=== PATIENT | female | born 1980 | race Caucasian/White ===

== ENCOUNTER 2016-05-27 09:09 | Emergency (ER) | payer MEDICAID, OTHER, SELFPAY ==
[~2016-05-27] VITALS: Ht 152.4 cm; Wt 73.3 kg
[~2016-05-27 09:09] MED LIST: LEVO500T8 PO
[2016-05-27] MEDS ORDERED: MAALOX/HYOSCYAMINE/LIDOCAINE 45 ML BOTTLE ONE (11:52)
[2016-05-27] MEDS ORDERED: FAMOTIDINE 20 MG/2 ML ONE (11:53)
[2016-05-27] MEDS ORDERED: ONDANSETRON 2MG/ML, 2ML ONE (11:53)
[2016-05-27] MEDS ORDERED: SODIUM CHLORIDE 0.9% 1,000ML IVBOLUS ONE (12:00)
[2016-05-27] MEDS ORDERED: MAALOX/HYOSCYAMINE/LIDOCAINE 45 ML BOTTLE PO ONE (12:00)
[2016-05-27] MEDS ORDERED: SODIUM CHLORIDE FLUSH 10ML SYR IVF ONE (12:00)
[2016-05-27] MEDS ORDERED: FAMOTIDINE 20 MG/2 ML IVP ONE (12:00)
[2016-05-27] MEDS ORDERED: MORPHINE SULFATE 4 MG/ML, 1ML IVPush PRN (12:00)
[2016-05-27] MEDS ORDERED: ONDANSETRON 2MG/ML, 2ML IVPush ONE (12:00)
[2016-05-27 12:03] LABS: HEMOGLOBIN 13.5 g/dL (11.7-16.4)
[2016-05-27 12:12] LABS: PATH.CAST-FLAG NOT PRESENT; SPERM-FLAG NOT PRESENT; SRC-FLAG NOT PRESENT; XTAL-FLAG NOT PRESENT; YLC-FLAG NOT PRESENT
[2016-05-27 12:16] LABS: ASPARTATE AMINO TRANSFERASE 45 U/L (15-37); BLOOD UREA NITROGEN 7 mg/dL (7-18)
[2016-05-27 13:11] VITALS: BP 120/69
== END 2016-05-27 13:52 | disposition home or self-care (01) ==
LOC: ED 12:10
DX: K29.00 Acute gastritis without bleeding (principal); R10.13 Epigastric pain; Z87.440 Personal history of urinary (tract) infections; Z98.51 Tubal ligation status; Z98.890 Other specified postprocedural states
CPT/HCPCS: 36415; 76700; 80053; 81001; 83690; 84703; 85025; 85610; 85730; 96361; 96374; 96375; 99285; J2405; J7030; S0028

== ENCOUNTER 2016-12-30 16:40 | Emergency (ER) | payer MEDICAID ==
[~2016-12-30] VITALS: Ht 152.4 cm; Wt 68.4 kg
[2016-12-30 16:42] VITALS: BP 104/66
[2016-12-30] MEDS ORDERED: SODIUM CHLORIDE 0.9% 1,000ML IVBOLUS ONE (17:00)
[2016-12-30] MEDS ORDERED: ONDANSETRON 2MG/ML, 2ML IVPush ONE (17:00)
[2016-12-30] MEDS ORDERED: SODIUM CHLORIDE FLUSH 10ML SYR IVF ONE (17:00)
[2016-12-30] MEDS ORDERED: FAMOTIDINE 20 MG/2 ML IVP ONE (17:00)
[2016-12-30] MEDS ORDERED: MAALOX/HYOSCYAMINE/LIDOCAINE 45 ML BTL PO ONE (17:00)
[2016-12-30 17:20] LABS: HEMATOCRIT 41.7 % (34.6-47.8); HEMOGLOBIN 14.2 g/dL (11.7-16.4); WHITE BLOOD COUNT 11.8 x10^3/uL (3.4-10)
[2016-12-30 18:00] LABS: ASPARTATE AMINO TRANSFERASE 121 U/L (15-37); BLOOD UREA NITROGEN 9 mg/dL (7-18)
[2016-12-30] MEDS ORDERED: MAALOX/HYOSCYAMINE/LIDOCAINE 45 ML BTL ONE (18:25)
[2016-12-30] MEDS ORDERED: FAMOTIDINE 20 MG/2 ML ONE (18:25)
[2016-12-30] MEDS ORDERED: ONDANSETRON 2MG/ML, 2ML ONE (18:25)
== END 2016-12-30 20:26 | disposition home or self-care (01) ==
LOC: ED 18:44
DX: K29.00 Acute gastritis without bleeding (principal)
CPT/HCPCS: 36415; 71020; 76700; 80053; 81003; 83690; 84703; 85025; 96361; 96374; 96375; 99285; J2405; J7030; S0028

== ENCOUNTER 2017-04-13 09:17 | Emergency (ER) | payer MEDICAID ==
[~2017-04-13] VITALS: Ht 152.4 cm; Wt 67.6 kg
[2017-04-13] MEDS ORDERED: ASPIRIN 81 MG TABLET CHEW PO ONE (10:30)
[2017-04-13] MEDS ORDERED: SODIUM CHLORIDE FLUSH 10ML SYR IVF ONE (10:30)
[2017-04-13] MEDS ORDERED: ASPIRIN 81 MG TABLET CHEW ONE (10:40)
[2017-04-13 10:45] LABS: BASOPHILS # (AUTO) 0.12 x10^3/uL (0-0.1); BASOPHILS % (AUTO) 1 % (0-1); EOSINOPHILS # (AUTO) 0.04 x10^3/uL (0-0.4); EOSINOPHILS % (AUTO) 0 % (1-7); LYMPHOCYTES # (AUTO) 2.47 x10^3/uL (1-3.4); LYMPHOCYTES % (AUTO) 22 % (22-44); MD NO; MEAN CORPUSCULAR HEMOGLOBIN 29.3 pg (27.0-34.8); MEAN CORPUSCULAR HGB CONC 33.8 g/dL (32.4-35.8); MEAN CORPUSCULAR VOLUME 86.7 fL (80-100); MEAN PLATELET VOLUME 9.6 fL (7.4-10.4); MONOCYTES # (AUTO) 0.75 x10^3/uL (0.2-0.8); MONOCYTES % (AUTO) 7 % (2-9); NEUTROPHILS % (AUTO) 70 % (42-75); PLATELET COUNT 170 x10^3/uL (130-400); RED BLOOD COUNT 4.87 x10^6/uL (3.82-5.3); RED CELL DISTRIBUTION WIDTH 14.2 % (9.6-15.2)
[2017-04-13 10:57] LABS: ALBUMIN 3.7 g/dL (3.4-5.0); ANION GAP 8 mmol/L (5-15); CALCIUM 8.5 mg/dL (8.5-10.1); CHLORIDE 106 mmol/L (98-107); CREATININE 0.64 mg/dL (0.55-1.02)
[2017-04-13 11:01] LABS: TROPONIN I < 0.015 ng/mL (0.000-0.045)
[2017-04-13] MEDS ORDERED: KETOROLAC 30 MG/1 ML ONE ×2 (11:43)
[2017-04-13] MEDS ORDERED: KETOROLAC 30 MG/1 ML IM ONE (12:00)
[2017-04-13] MEDS ORDERED: KETOROLAC 30 MG/1 ML IVPush ONE (12:00)
[2017-04-13 12:27] VITALS: BP 113/66
== END 2017-04-13 12:29 | disposition home or self-care (01) ==
LOC: ED 12:19
DX: M94.0 Chondrocostal junction syndrome [Tietze] (principal); I82.412 Acute embolism and thrombosis of left femoral vein
CPT/HCPCS: 36415; 71046; 80048; 82040; 83880; 84484; 85025; 85379; 93005; 93971; 96372; 99285; J1885

== ENCOUNTER 2019-12-01 10:20 | Emergency (ER) | payer OTHER ==
[~2019-12-01] VITALS: Ht 152.4 cm; Wt 64.0 kg
--- NOTE | 2019-12-01 10:48 | NUR ---
PT STATES SHE HAS HAD EPIGASTRIC PAIN SINCE ABOUT 1700 LAST NIGHT AFTER EATING A SALAD. PT ALSO STATES SHE HAS HAD A HEADACHE SINCE ABOUT 1800 LAST NIGHT. PT STATES HER PAIN IS 8/10.
[2019-12-01] MEDS ORDERED: FAMOTIDINE 20 MG TABLET PO ONE (11:00)
[2019-12-01] MEDS ORDERED: SODIUM CHLORIDE FLUSH 10ML SYR IVF ONE (11:00)
[2019-12-01] MEDS ORDERED: SODIUM CHLORIDE 0.9% 1,000ML IVBOLUS ONE (11:00)
[2019-12-01] MEDS ORDERED: MAALOX/HYOSCYAMINE/LIDOCAINE 45 ML BTL PO ONE (11:00)
[2019-12-01] MEDS ORDERED: KETOROLAC 30 MG/1 ML IVPush ONE (11:00)
[2019-12-01] MEDS ORDERED: FAMOTIDINE 20 MG/2 ML ONE (11:03)
[2019-12-01] MEDS ORDERED: MAALOX/HYOSCYAMINE/LIDOCAINE 45 ML BTL ONE (11:03)
[2019-12-01] MEDS ORDERED: KETOROLAC 30 MG/1 ML ONE (11:03)
[2019-12-01 11:29] LABS: BASOPHILS % (AUTO) 1 % (0-1); EOSINOPHILS % (AUTO) 1 % (1-7); LYMPHOCYTES % (AUTO) 26 % (22-44); MEAN CORPUSCULAR HEMOGLOBIN 29.9 pg (27.0-34.8); MEAN CORPUSCULAR HGB CONC 33.9 g/dL (32.4-35.8); MEAN PLATELET VOLUME 10.4 fL (7.4-10.4); MONOCYTES % (AUTO) 8 % (2-9); NEUTROPHILS % (AUTO) 65 % (42-75); PLATELET COUNT 220 x10^3/uL (130-400); RED BLOOD COUNT 5.09 x10^6/uL (3.82-5.3); RED CELL DISTRIBUTION WIDTH 13.2 % (9.6-15.2)
[2019-12-01 11:30] LABS: MD NO
[2019-12-01] MEDS ORDERED: FAMOTIDINE 20 MG/2 ML IVPush ONE (11:30)
[2019-12-01 11:39] LABS: ALANINE AMINOTRANSFERASE 49 U/L (12-78); ALBUMIN 3.7 g/dL (3.4-5.0); ANION GAP 3 mmol/L (5-15); CALCIUM 8.9 mg/dL (8.5-10.1); CHLORIDE 106 mmol/L (98-107); CREATININE 0.72 mg/dL (0.55-1.02)
[2019-12-01 11:42] LABS: ALKALINE PHOSPHATASE 82 U/L (45-117); BILIRUBIN,TOTAL 1.7 mg/dL (0.2-1.0); TOTAL PROTEIN 7.8 g/dL (6.4-8.2)
[2019-12-01 12:24] LABS: MICROSCOPIC NOT IND
[2019-12-01 12:25] VITALS: BP_DIAS 66
[2019-12-01 12:59] VITALS: BP_SYST 120
== END 2019-12-01 13:02 | disposition home or self-care (01) ==
LOC: ED 11:47
DX: K21.00 Gastro-esophageal reflux disease with esophagitis, without bleeding (principal); K29.00 Acute gastritis without bleeding; R51.9 Headache, unspecified; R10.13 Epigastric pain; Z98.51 Tubal ligation status
CPT/HCPCS: 36415; 76700; 80053; 81003; 85025; 93005; 96361; 96374; 96375; 99285; J1885; J7030